=== PATIENT | male | born 1970 | race Caucasian/White ===

== ENCOUNTER 2019-12-18 13:05 | Day surgery (SDC) | payer OTHER ==
[~2019-12-18 13:05] MED LIST: Glycopyrrolate 0.2 MG/ML 5 ML SYRINGE ONE; Ketorolac Tromethamine 30 MG/ML VIAL ONE; Lidocaine 1% PF 5 ML VIAL ONE; PROPOFOL 200 MG/20 ML VIAL ONE; Rocuronium Bromide 10 MG/ML (10ML VIAL) ONE
--- NOTE | 2019-12-18 13:54 | ULT ---
ULTRASOUND ABDOMEN LIMITED: (RIGHT UPPER QUADRANT) DATE: 12/18/2019 HISTORY: 49-year-old male with right upper quadrant abdominal pain FINDINGS: Liver: Diffusely hyperechoic. Signal dropout in deep rai. This represents fatty liver. Gallbladder: No excessive distention. A few tiny nonshadowing, immobile hyperechoic foci in the lumen adherent to gallbladder wall, a few millimeters in size each. In retrospect, these were present on 12/28/2017. Lucency around the gallbladder probably represents focal fatty sparing, less likely perich olecystic fluid or edema. Gallbladder wall thickness variable, up to 4 mm in some areas, 2 mm and others. Common duct: 8 mm, larger than on prior ultrasound. However, no intrahepatic biliary ductal dilation. Right kidney: No hydronephrosis. Pancreas: Poorly visualized. IMPRESSION: 1. Mildly dilated common duct: 8 mm. 2. A few tiny hyperechoic foci in the gallbladder are favored to represent polyps rather than gallsto jose.
--- NOTE | 2019-12-18 16:23 | PDOC.GSCN ---
Surgery Consult: HPI - Consult details Date: 12/18/19 Time: 16:22 Reason for consult: abdominal pain History of present illness: 12/18/19 16:22 49yo male with one day history of abdominal pain. The pain is located in the right upper quadrant and is characterized as "sharp". Exacerbated by eating. Has had multiple episodes in the past with spontaneous resolution overnight. This episode has not resolved. Denies N/V/D.Labs from OSH reviewed and demonstrate eleveated transaminases at 38/94. Normal TB. WBC 6.2 12/18/19 16:27 Surgery Consult: ROS - Review of Systems All systems: 10 systems reviewed and no additional complaints unless stated below. Surgery Consult: H Past Medical History: GERD Past Surgical History: vasectomy back surgery - Past Family History Family history: reviewed and not pertinent - Past Social History Smoking Status: Current every day smoker Alcohol Use: rarely Drug Use History: none Surgery Consult: Exam - Physical Exam General: no distress, well developed Eye: normal ocular movement, PERRL ENT: normal mucosa, normal nares Neck: no lymphadectomy, no masses, no yves distention Respiratory: clear to auscultation, clear to percussion Abdomen: soft, tender (positve TTP in RUQ with palpation. Negative Murillo's sign ) Hernia: inguinal (bilateral) Integumentary: no abnormal pigmentation, no growths, no rash Neurologic: normal coordination, normal sensation Musculoskeletal: normal gait, normal posture Surgery Consult: Results - Radiology Interpretation CT scan - abdomen Status: image reviewed by me Additional comments: Questionable cholelithiasis, no evidence of cholecystitis US - abdomen Status: image reviewed by me Additional comments: Small foci... gallstones vs. polyps. Polyps favored. Surgery Consult: A/P - Problem (1) Acute cholecystitis Current Visit: Yes Code(s): K81.0 - ACUTE CHOLECYSTITIS Status: Acute - Plan Plan: Given the patients persistent symptoms despite time and analgesia, will proceed with laparoscopic cholecystectomy. The risks and benefits have been discussed and informed consent obtained. Plan to dc home from PACU if dc criteria met.
[2019-12-18] MEDS ORDERED: Fentanyl 100 MCG/2 ML VIAL ONE ×2 (17:26→18:49)
[2019-12-18] MEDS ORDERED: Midazolam HCl 2 mg/2 ml Vial ONE (17:26)
[2019-12-18] MEDS ORDERED: Bupivacaine 0.25% HCL 30 ML VIAL ONE (17:33)
[2019-12-18] MEDS ORDERED: SUGAMMADEX SODIUM 500 MG/5 ML VIAL ONE (18:36)
[2019-12-18] MEDS ORDERED: Meperidine HCl/PF 25 MG/ML VIAL ONE (18:47)
--- NOTE | 2019-12-18 19:16 | OP ---
DATE OF PROCEDURE: 12/18/2019 PREOPERATIVE DIAGNOSIS: Acute cholecystitis. POSTOPERATIVE DIAGNOSIS: Acute cholecystitis. PROCEDURE PERFORMED: Laparoscopic cholecystectomy. INDICATIONS: This is a 49-year-old male with a long history of intermittent right upper quadrant pain. Over the last 24 hours, he has had a severe episode of right upper quadrant pain that has been unrelenting. Given his persistence of symptoms and the classic presentation of acute cholecystitis, the patient was consented for laparoscopic cholecystectomy. DESCRIPTION OF PROCEDURE: The patient was brought to the operating room and positioned supine on the operating room table. After induction of general, endotracheal anesthesia, the patient was prepared and draped in the usual fashion. Prior to beginning the procedure, a complete time-out was performed with all members of the operative team being present and in agreement. Access to the abdomen was obtained in the right upper quadrant using an optical trocar under direct visualization. The abdomen was insufflated and examined with inflammation being found around the gallbladder. Additional trocars were placed under direct visualization. The gallbladder was grasped and retracted cephalad. The triangle of Calot was dissected bluntly with minimal electrocautery. This dissection proceeded until the critical view of safety was achieved. Once the critical view of safety was achieved, the cystic duct and cystic artery were divided between clips. The gallbladder was removed from the gallbladder bed using electrocautery. The gallbladder was placed in a specimen bag. The gallbladder bed was examined and hemostasis achieved. The abdominal cavity was irrigated and suctioned free of debris. The specimen was removed, and the 12-mm trocar site closed using a 0- Vicryl tie and a suture passer. The skin was closed with 4-0 Monocryl and dressed with skin adhesive dressing. At the conclusion of the case, all sponge and instrument counts were correct. COMPLICATIONS: None. ESTIMATED BLOOD LOSS: Minimal. SPECIMENS: Gallbladder DISPOSITION: The patient was transported to the postoperative recovery unit to be discharged home once discharge criteria were met. Job ID: [id number] MTDD
[2019-12-18] MEDS ORDERED: HYDROcodone/Acetaminophen 5/325 mg Tablet ONE (19:20)
== END 2019-12-18 19:38 | disposition home or self-care (01) ==
LOC: ERS 13:05 → SDC/OP 16:17
PROVIDERS: ATTEND Surgery
PROC: 0FT44ZZ Resection of Gallbladder, Percutaneous Endoscopic Approach (ICD-10-PCS; principal; 2019-12-18)
DX: K81.2 Acute cholecystitis with chronic cholecystitis (principal); K21.9 Gastro-esophageal reflux disease without esophagitis; F17.200 Nicotine dependence, unspecified, uncomplicated; I10 Essential (primary) hypertension; Z79.899 Other long term (current) drug therapy
CPT/HCPCS: 76705; 88304; J0690; J1885; J2001; J2175; J2250; J2704; J3010; S0020

== ENCOUNTER 2020-07-20 09:02 | Outpatient (CLI) | payer OTHER ==
[2020-07-20 16:41] LABS: SARS-CoV-2 MS2 Positive; SARS-CoV-2 N Gene Negative; SARS-CoV-2 S Gene Negative; SARS-CoV-2 by NAA Not Detected (NotDetected); SARS-CoV-2 orf1ab Negative
== END 2020-07-20 09:03 | disposition home or self-care (01) ==
LOC: LABSCS 09:02
PROVIDERS: ATTEND Surgery
DX: K21.9 Gastro-esophageal reflux disease without esophagitis (principal); Z20.828 Contact with and (suspected) exposure to other viral communicable diseases
CPT/HCPCS: 87635; U0003

== ENCOUNTER 2020-07-25 08:18 | Outpatient (CLI) | payer OTHER ==
--- NOTE | 2020-07-25 09:49 | RAD ---
Upper GI air contrast HISTORY: Chest and abdomen pain. Reflux and esophagitis. FINDINGS: Air contrast evaluation shows a very small sliding hiatal hernia. Large amount of reflux th roughout the entirety of the esophagus. Prominent nonpropulsive tertiary type contractions. Duodenum has normal appearance. A 12 mm barium tablet traversed the esophagus without holdup. IMPRESSION : Very small sliding hiatal hernia. Very large amount of gastroesophageal reflux with esophageal spasm.
== END 2020-07-25 08:19 | disposition home or self-care (01) ==
LOC: RAD 08:18
PROVIDERS: ATTEND Surgery
DX: K21.9 Gastro-esophageal reflux disease without esophagitis (principal); K44.9 Diaphragmatic hernia without obstruction or gangrene; K22.4 Dyskinesia of esophagus
CPT/HCPCS: 74246

== ENCOUNTER 2021-02-05 11:46 | Outpatient (CLI) | payer OTHER ==
[2021-02-05 23:42] LABS: SARS-CoV-2 PCR by NAA Not Detected (NotDetected)
== END 2021-02-05 11:47 | disposition home or self-care (01) ==
LOC: LABBT 11:46
PROVIDERS: ATTEND Surgery
DX: Z01.812 Encounter for preprocedural laboratory examination (principal); Z20.822 Contact with and (suspected) exposure to COVID-19
CPT/HCPCS: 87635; U0003; U0005

== ENCOUNTER → 2021-02-08 | Day surgery (SDC) | payer OTHER | LOC: ENDO/OP 07:36 | PROVIDERS: ATTEND Surgery | DX: K21.9 Gastro-esophageal reflux disease without esophagitis (principal); K44.9 Diaphragmatic hernia without obstruction or gangrene | CPT/HCPCS: 91010 ==

== ENCOUNTER 2021-04-16 09:50 | Outpatient (CLI) | payer OTHER ==
[2021-04-16 10:56] LABS: #Eosinphils 0.1 10x3/uL (0.0-0.5); #Monocytes 0.7 10x3/uL (0.0-1.1); #Neutrophils 3.6 10x3/uL (1.5-8.4); %Basophils 0.3 % (0.0-2.0); %Lymphocytes 27.2 % (18.0-47.0); %Monocytes 11.6 % (0.0-10.0); %Neutrophils 59.2 % (40.0-75.0); Hemoglobin 17.1 g/dL (13.5-17.5); Mean Corpuscular Hemoglobin 30.4 pg (27.0-33.0); Mean Corpuscular Volume 86.8 fl (81.2-95.1); Mean Platelet Volume 9.6 fl (7.4-10.4); Platelet Count 220 10x3/uL (150-450); RBC Distribution Width 11.7 % (11.5-14.5); Red Blood Cell (RBC) Count 5.62 10x6/uL (4.32-5.72)
[2021-04-16 11:30] LABS: ALT (SGPT) 25 U/L (8-55); AST (SGOT) 19 U/L (5-34); Albumin 4.6 g/dL (3.5-5.0); Alkaline Phosphatase 69 U/L (40-110); Anion Gap 12 mmol/L (10-20); BUN (Urea Nitrogen) 10 mg/dL (8.4-25.7); Bilirubin, Total 0.7 mg/dL (0.2-1.2); Calc. Creatinine Clearance 0 mL/min (70-130); Calcium 10.4 mg/dL (7.8-10.44); Carbon Dioxide 26 mmol/L (22-29); Chloride 103 mmol/L (98-107); Glucose 107 mg/dL (70-105); Potassium 4.2 mmol/L (3.5-5.1); Protein, Total 7.6 g/dL (6.0-8.3); Sodium 137 mmol/L (136-145)
[2021-04-17 00:12] LABS: SARS-CoV-2 NAA Rapid Test Not Detected (NotDetected)
== END 2021-04-16 09:51 | disposition home or self-care (01) ==
LOC: LABBT 09:50
PROVIDERS: ATTEND Surgery
DX: Z01.818 Encounter for other preprocedural examination (principal); K21.9 Gastro-esophageal reflux disease without esophagitis; Z20.822 Contact with and (suspected) exposure to COVID-19
CPT/HCPCS: 80053; 85025; 93005; 93010; U0002; U0005

== ENCOUNTER 2021-04-19 05:53 | Observation (INO) | payer OTHER ==
[2021-04-18 11:47] VITALS: BMI 26.7
[2021-04-19] MEDS ORDERED: Bupivacaine 0.25% HCL 30 ML VIAL ONE (06:41)
[2021-04-19] MEDS ORDERED: Lidocaine 1% w/Epinephrine 1:100K 20 ML VIAL ONE (06:41)
[2021-04-19] MEDS ORDERED: Fentanyl 100 MCG/2 ML VIAL ONE ×4 (06:45→11:13)
[2021-04-19] MEDS ORDERED: Midazolam HCl 2 mg/2 ml Vial ONE (06:45)
[2021-04-19] MEDS ORDERED: PHENYLEPHRINE-NS 100 MCG/ML 10 ML SYRINGE ONE (07:38)
[2021-04-19] MEDS ORDERED: Ondansetron PF 4 MG/2 ML Vial ONE (07:38)
[2021-04-19] MEDS ORDERED: Dexamethasone 20 MG/5 ML VIAL ONE (07:38)
[2021-04-19] MEDS ORDERED: Ketorolac Tromethamine 30 MG/ML VIAL ONE (07:38)
[2021-04-19] MEDS ORDERED: Lidocaine 1% PF 5 ML VIAL ONE (07:38)
[2021-04-19] MEDS ORDERED: PROPOFOL 200 MG/20 ML VIAL ONE (07:38)
[2021-04-19] MEDS ORDERED: Rocuronium Bromide 10 MG/ML (10ML VIAL) ONE (07:38)
[2021-04-19] MEDS ORDERED: diphenhydrAMINE 50 MG/ML VIAL ONE (07:38)
[2021-04-19] MEDS ORDERED: Glycopyrrolate 0.2 MG/ML 5 ML SYRINGE ONE (07:38)
[2021-04-19] MEDS ORDERED: hydrALAZINE 20 MG/ML VIAL SLOW IVP PRN (09:30)
[2021-04-19] MEDS ORDERED: Dextrose 5% in Water 1,000 ML IV PRN (09:30)
[2021-04-19] MEDS ORDERED: Morphine 2 MG/ML VIAL SLOW IVP PRN ×2 (09:30→11:15)
[2021-04-19] MEDS ORDERED: Dextrose 50% Abboject 50 ML SYRINGE SLOW IVP PRN (09:30)
[2021-04-19] MEDS ORDERED: Hydrocodone-Acetamin 15 ML UDCUP PO PRN ×2 (09:30→11:14)
[2021-04-19] MEDS ORDERED: Morphine 4 MG/ML VIAL SLOW IVP PRN ×2 (09:30→11:15)
[2021-04-19] MEDS ORDERED: Ondansetron PF 4 MG/2 ML Vial IVP PRN ×2 (09:30→11:09)
[2021-04-19] MEDS ORDERED: diphenhydrAMINE 50 MG/ML VIAL IVP PRN ×2 (09:30→11:09)
[2021-04-19] MEDS ORDERED: Promethazine HCl 25 MG/ML VIAL IM PRN ×3 (09:30→11:09)
[2021-04-19] MEDS ORDERED: HYDROmorphone 2 MG/ML VIAL SLOW IVP PRN (09:31)
[2021-04-19] MEDS ORDERED: Ondansetron HCl/PF 4 MG/2 ML Vial IVP PRN (09:31)
[2021-04-19] MEDS ORDERED: Morphine Sulfate 2 MG/ML SYRINGE SLOW IVP PRN (09:31)
[2021-04-19] MEDS ORDERED: PACU-Morphine 4MG/ML VIAL SLOW IVP PRN (09:31)
[2021-04-19] MEDS ORDERED: Meperidine HCl/PF 25 MG/ML VIAL SLOW IVP PRN (09:31)
[2021-04-19] MEDS ORDERED: diphenhydrAMINE 25 MG CAP PO PRN (11:09)
[2021-04-19] MEDS ORDERED: diphenhydrAMINE 50 MG/ML VIAL IM PRN (11:09)
[2021-04-19] MEDS ORDERED: Naloxone HCl 0.4 mg/ml Vial IV PRN (11:09)
[2021-04-19] MEDS ORDERED: fentaNYL Citrate/PF 2,000 MCG in Sodium Chloride 0.9% 60 ML IV PRN (11:09)
[2021-04-19] MEDS ORDERED: Zolpidem Tartrate 5 MG TAB PO PRN (11:09)
[2021-04-19] MEDS ORDERED: Communication Order-Pharmacy FS SCH (11:15)
[2021-04-19] MEDS: Ketorolac Tromethamine 30 MG/ML VIAL IVP SCH ×3 (14:50→23:52)
[2021-04-19] MEDS: D5 1/2 NS w/20 mEq KCL 1,000 ML IV SCH ×3 (16:15→23:53)
[2021-04-19] MEDS: CEFAZOLIN 2 GM in Premix Bag 1 BAG IVPB SCH ×2 (16:15→23:52)
[2021-04-20] MEDS ORDERED: chlorproMAZINE HCl 25 MG TAB PO PRN (01:36)
[2021-04-20 05:32] LABS: #Lymphocytes 1.3 thou/uL (1.20-3.40); #Monocytes 1.1 thou/uL (0.11-0.59); %Basophils 0.1 % (0.0-1.0); %Eosinophils 0.1 % (0.0-10.0); %Lymphocytes 9.9 % (21.0-51.0); %Monocytes 8.1 % (0.0-10.0); %Neutrophils 81.8 % (42.0-75.0); Hemoglobin 14.8 g/dL (14.0-18.0); Mean Corpuscular HGB CONC 34.6 g/dL (32.0-36.0); Mean Corpuscular Hemoglobin 32.2 pg (27.0-31.0); Mean Platelet Volume 7.2 fL (7.4-10.4); Platelet Count 191 thou/uL (130-400); RBC Distribution Width 11.2 % (11.5-14.5); Red Blood Cell (RBC) Count 4.61 mill/uL (4.70-6.10); White Blood Cell (WBC) Count 13.5 thou/uL (4.8-10.8)
[2021-04-20 05:49] LABS: Anion Gap 11 mmol/L (10-20); BUN (Urea Nitrogen) 7 mg/dL (8.4-25.7); Calc. Creatinine Clearance 147 mL/min (70-130); Calcium 8.9 mg/dL (7.8-10.44); Carbon Dioxide 27 mmol/L (22-29); Chloride 101 mmol/L (98-107); Glucose 122 mg/dL (70-105); Potassium 3.9 mmol/L (3.5-5.1); Sodium 135 mmol/L (136-145)
[2021-04-20] MEDS: Ketorolac Tromethamine 30 MG/ML VIAL IVP SCH ×2 (06:12→11:07)
[2021-04-20] MEDS ORDERED: Enoxaparin Sodium 40 MG/0.4 ML SYRINGE SC SCH (09:00)
[2021-04-20] MEDS ORDERED: Pantoprazole 40 MG VIAL IVP SCH (09:00)
[2021-04-20] MEDS: D5 1/2 NS w/20 mEq KCL 1,000 ML IV SCH (09:18)
[2021-04-20 11:40] VITALS: BP 144/87; TEMP 99
== END 2021-04-20 11:55 | disposition home or self-care (01) ==
LOC: SDC 05:53 → INTOOBSV 09:30 → SURG A 09:30
PROVIDERS: ADMIT Surgery; ATTEND Surgery
PROC: 0DV44ZZ Restriction of Esophagogastric Junction, Percutaneous Endoscopic Approach (ICD-10-PCS; principal; 2021-04-19)
DX: K44.9 Diaphragmatic hernia without obstruction or gangrene (principal); K21.9 Gastro-esophageal reflux disease without esophagitis; G47.9 Sleep disorder, unspecified; F17.200 Nicotine dependence, unspecified, uncomplicated; Z79.899 Other long term (current) drug therapy
CPT/HCPCS: 36415; 71045; 80048; 80053; 85025; 93005; C9113; J0690; J1100; J1200; J1650; J1885; J2250; J2405; J2704; J3010; J3480; J3490; Q0161; S0020; U0002; U0005

== ENCOUNTER → 2023-02-09 | Day surgery (SDC) | payer OTHER ==
[~2023-02-09] MED LIST changes: +EPINEPHrine 1 MG/ML AMP ONE; +Gadobenate 529 MG/1 ML (20ML SDV) ONE; -Glycopyrrolate 0.2 MG/ML 5 ML SYRINGE ONE; +Iopamidol 300 61% 100 ML VIAL FS ONE; -Ketorolac Tromethamine 30 MG/ML VIAL ONE; +Magnevist 469MG/ML 20 ML VIAL ONE; -PROPOFOL 200 MG/20 ML VIAL ONE; -Rocuronium Bromide 10 MG/ML (10ML VIAL) ONE
== END | disposition home or self-care (01) ==
LOC: RAD 08:46
PROVIDERS: ATTEND Orthopaedic Surgery
PROC: BP39YZZ Magnetic Resonance Imaging (MRI) of Left Shoulder using Other Contrast (ICD-10-PCS; principal; 2023-02-09)
DX: M21.822 Other specified acquired deformities of left upper arm (principal); M19.012 Primary osteoarthritis, left shoulder; S43.432A Superior glenoid labrum lesion of left shoulder, initial encounter; X58.XXXA Exposure to other specified factors, initial encounter
CPT/HCPCS: 23350; A9577; J0171; J7050; Q9967